=== PATIENT | male | born 1950 | race Caucasian/White ===

== ENCOUNTER → 2018-03-09 08:00 | Outpatient (CLI) | payer OTHER ==
[~2018-03-09 08:00] MED LIST: BAYER CHEWABLE81 MG PO; CHLORTHALIDONE50 MG PO; COLACE100 MG PO; CORDARONE200 MG PO; COZAAR100 MG PO; GLIPIZIDE10 MG PO; HYDRALAZINE HCL10 MG PO; ISOSORBIDE MONO30 M1 PO; K-TAB10 MEQ PO; LANTUS INSULIN10 ML SC; LIPITOR20 MG PO; METOPROLOL TART25 MG PO; OMEPRAZOLE20 M1 PO; PAXIL40 MG PO; PERCOCET 5-3251 TAB PO; PLAVIX75 MG PO; SENOKOT-S TABLE1 TAB PO; TIAZAC/CARDIZE240 M1 PO; TRICOR145 MG PO; VITAMIN D2000 UNIT PO
[2018-03-16 09:45] VITALS: BMI 31.4
== END | disposition home or self-care (01) ==
LOC: D.OPS 08:00
DX: I25.10 Atherosclerotic heart disease of native coronary artery without angina pectoris (principal); Z01.810 Encounter for preprocedural cardiovascular examination; Z01.811 Encounter for preprocedural respiratory examination; Z01.812 Encounter for preprocedural laboratory examination; Z53.9 Procedure and treatment not carried out, unspecified reason

== ENCOUNTER 2018-03-13 12:06 | Outpatient (CLI) | payer OTHER ==
[2018-03-09 11:10] LABS: APPEARANCE CLEAR (CLEAR); BILIRUBIN NEGATIVE (NEGATIVE); COLOR YELLOW (YELLOW); GLUCOSE NEGATIVE (NEGATIVE); KETONE NEGATIVE (NEGATIVE); NITRITE NEGATIVE (NEGATIVE); PROTEIN NEGATIVE (NEGATIVE); SPECIFIC GRAVITY 1.005 (1.005-1.020); UROBILINOGEN NORMAL (NORMAL)
[2018-03-09 11:21] LABS: BASOPHILS 0.5 % (0-2); EOSINOPHILS 1.8 % (0-7); HEMATOCRIT 36.6 % (42.0-54.0); HEMOGLOBIN 12.1 g/dL (13.5-17.5); IMMATURE GRANULOCYTES 0.2 % (0-5); LYMPHOCYTES 31.5 % (15-50); MCH 26.8 pg (26.0-34.0); MCHC 33.1 g/dL (31.0-37.0); MEAN PLATELET VOLUME 10.1 fL (7.4-10.4); MONOCYTES 11.5 % (2-11); NEUTROPHILS 54.5 % (40-80); PLATELET COUNT 242 10x3/uL (130-400); RBC 4.52 10x6/uL (4.20-6.10); RDW 13.2 % (11.5-14.5); WBC 4.4 10x3/uL (4.8-10.8)
[2018-03-09 11:38] LABS: APTT 26.7 SECONDS (22.8-39.4); INR 1.01 (0.85-1.17); PROTIME 12.9 SECONDS (11.6-15.0)
[2018-03-09 11:57] LABS: ALBUMIN 3.7 g/dL (3.4-5.0); ANION GAP 8.1 mmol/L (8-16); BILIRUBIN - TOTAL 0.28 mg/dL (0.2-1.3); CALCIUM 8.6 mg/dL (8.5-10.1); CARBON DIOXIDE 32.1 mmol/L (21.0-32.0); CREATININE - SERUM 1.6 mg/dL (0.6-1.3); PHOSPHOROUS 3.8 mg/dL (2.5-4.9); POTASSIUM - SERUM 3.2 mmol/L (3.5-5.1); PROTEIN - SERUM 7.6 g/dL (6.4-8.2); T4 THYROXIN - FREE 1.12 ng/dL (0.76-1.46); THYROID STIMULATING HORMONE 0.47 uIU/mL (0.36-3.74); URIC ACID 4.2 mg/dL (2.6-7.2)
--- NOTE | ~2018-03-13 | HP ---
PATIENT: JUAN MIGUEL SHI MEDICAL RECORD: [id number] ACCOUNT: [id number] LOCATION:[facility] : 52 ADMISSION DATE: 03/07/18 HISTORY AND PHYSICAL EXAMINATION JUAN MIGUEL Osborne (67yo, M) ID# [id number]. Date/Time02/21/2018 03:84NCIHU1951Service Dept.NP_[facility] ClinicProviderNARCISO WEINBERG MDInsuranceMed Contracts: [facility] Insurance # : [id number] Employer Name : SELF / RETIRED Prescription: ESI1 - Member is eligible. Chief Complaint Coronary artery disease Vitals BP:144/74 sitting L arm 02/21/2018 03:25 pm 144/60 sitting R arm 02/21/2018 03:27 pmBP Cuff Size:adult 02/21/2018 03:25 pm adult 02/21/2018 03:27 pmHR:60,reg 02/21/2018 03:28 pmHt:5 ft 9 in 02/21/2018 03:28 pmWt:215 lbs 02/21/2018 03:28 pmNotes:having chest pain and pressure for two months, noted especially with trying to mow. Pressure is fairly constant, becomes pain with exertion like mowing. Has SOB with walking up hill, even with walking around the [place] [employer] [place]. Has noted a high fatigue level for several months. 02/21/2018 03:30 pmBMI:31.7 02/21/2018 03:28 pmAllergies Reviewed Allergies SULFAMETHOXAZOLETRIMETHOPRIMMedications Reviewed Medications amoxicillin 500 mg iaenbgs45/26/17 filledMEDCOaspirin 81mg daily02/20/18 enteredErika Watkinsclopidogrel 75 mg tablet Take 1 tablet(s) every day by oral route.02/20/18 enteredErika Watkinsfenofibrate 150 mg capsule Take 1 capsule(s) every day by oral route.02/20/18 enteredErika WatkinshydrALAZINE 10 mg tablet Take 1 tablet(s) twice a day by oral route.02/20/18 enteredErika Watkinsmetoprolol tartrate 25mg bid02/20/18 enteredErika Watkinsomeprazole 20mg daily02/20/18 enteredErika WatkinsProblems Reviewed Problems Diabetes mellitus Dyslipidemia Hypertensive disorder Cerebrovascular disease Chronic lung disease Family History Reviewed Family History Father- Cerebrovascular accident (onset age: 64)Mother- Complication of surgical procedure (onset age: 72)Sister- Parkinson's diseaseSocial History Reviewed Social History Cardiology Family history of heart disease?: N Smoking Status: Former smoker (Notes: quit 1973) High Cholesterol: Y High blood pressure: Y Exercise level: None Overweight: Y Obese: Y HISTORY AND PHYSICAL [id number] JUAN MIGUEL SHI Diabetes: Y Alcohol intake: None Diet: Diabetic Occupation: [employer] Surgical History Reviewed Surgical History kidney stones Past Medical History Reviewed Past Medical History Angina: Y Bladder Problems: Y - kidney stones COPD: Y Chest Pain: Y Coronary Artery Disease: Y Depression: Y Diabetes: Y Eye Problems: Y Heart Disease: Y Hyperlipidemia: Y Hypertension: Y Pain in legs when walking: Y Prostate Problems: Y Shortness of Breath: Y Stroke: Y - 2012 or 2014, r side affected Documents for Discussion N/A Screening None recorded. HPI Angina/Chest Pain Reported by patient. Location: chest; does not radiate Quality: pressure; sharp Severity: very limiting Duration: lasts minutes; has noted for months Onset/Timing: multiple times per day Context: exertional Alleviating Factors: relieved with NTG; relieved with rest Aggravating Factors: worse with activity; worse with eating Associated Symptoms: no nocturnal episodes; chest discomfort; shortness of breath; exertional dyspnea; decrease in exercise capacity; fatigue; lightheadedness substernal chest pressure started about 2 months ago when mowing grass Workup at [place] including positive anterior stress test Negative carotids History of stroke with no residual angiogram with three-vessel coronary disease significant risk factors including diabetes hypertension hyperlipidemia family history, long ago former smoker ROS Additionally reports: as reviewed in the chart with the patient ROS as noted in the HPI Physical Exam Patient is a 67-year-old male. Constitutional: General Appearance well nourished and developed and HISTORY AND PHYSICAL [id number] JUAN MIGUEL SHI healthy-appearing. Level of Distress NAD. Ambulation ambulating normally. Cardiovascular: Apical Impulse not displaced or no thrill. Heart Auscultation no murmurs, rubs, or gallops and RRR. Arterial Pulses 2+ bilateral. Edema no edema or varicosities. Lungs: Repiratory Effort no dyspnea. Percussion no hyperresonance or dullness or flatness. Auscultation no wheezing, rhonchi, or rales / crackles and breathing sounds normal, good air movement, and CTA except as noted. Abdomen: Bowl Sounds normal. Inspection and Palpation no tenderness, guarding, masses, or rebound tenderness and soft and non-distended. Liver non-tender and no hepatomegaly. Spleen non-tender and no splenomegaly. Hernia none palpable. Ears, Nose, Throat: Hearing grossly normal hearing. Oropharynx: moist mucous membranes. Musculoskeletal System: Gait And Stance normal gait and stance. Digits and Nails normal nail s and no cyanosis. Joints, Bones, and Muscles normal strength and movement of all extremities. Neurologic: Cranial Nerves grossly intact. Sensation grossly intact. Lymph Nodes: Lymph Nodes no cervical LAD or supraclavicular LAD. Eyes: Lids and Conjunctivae no discharge or pallor and non-injected. Pupils PERRLA. Cornea grossly intact. EOM EOMI. Lens clear. Sclerae non-icteric. Neck: Neck no masses, enlarged lymph nodes, or carotid bruits and supple and trachea midline. Thyroid no enlargement or nodules and non-tender. Skin: Inspection and Palpation no rash, lesions, ulcers, or jaundice. Assessment / Plan 1. Coronary arteriosclerosis in [place] artery I25.10: Atherosclerotic heart disease of [place] coronary artery without angina pectoris Patient Goals discontinue Plavix 7 days prior to surgery Patient Instructions discussed warning signs for immediate emergency room visit Discussion Notes we discussed the rationale for surgery, alternatives, benefits, and risks with the patient and his . They understand the risks include but are not limited to bleeding, transfusion, infection, arrhythmia, stroke, heart attack, and . Consent given HISTORY AND PHYSICAL [id number] JUAN MIGUEL SHI, NARCISO Castanon MD at 1000 CC: [id number] DICTATION DATE: 02/21/18 1515 UPKEEP WORKER: [place] 02/23/18 1332 PRE IN [place] [id number] [place] [address]
[~2018-03-13 12:06] MED LIST changes: -COLACE100 MG PO; -CORDARONE200 MG PO; -PERCOCET 5-3251 TAB PO; -PLAVIX75 MG PO; -SENOKOT-S TABLE1 TAB PO
[2018-03-15 06:09] VITALS: BMI 31.0
== END 2018-03-13 12:07 | disposition home or self-care (01) ==
LOC: D.OPS 12:06 → D.SDCHOLD 03-15 05:00
PROVIDERS: Thoracic Surgery (Cardiothoracic Vascular Surgery)
DX: I25.10 Atherosclerotic heart disease of native coronary artery without angina pectoris (principal); Z01.810 Encounter for preprocedural cardiovascular examination; Z01.811 Encounter for preprocedural respiratory examination; Z01.812 Encounter for preprocedural laboratory examination; Z53.9 Procedure and treatment not carried out, unspecified reason

== ENCOUNTER 2018-03-15 05:00 | Inpatient (IN) | payer OTHER ==
[~2018-03-15] VITALS: Ht 175.3 cm; Wt 95.0 kg
[2018-03-15] VITALS (40 sets, daily range): BP systolic 107–149; BP diastolic 46–68; BMI 31.0
--- NOTE | ~2018-03-15 | OP ---
PATIENT NAME: JUAN MIGUEL SHI MEDICAL RECORD: [id number] :52 LOCATION:D.CVI D.CV04 ADMISSION DATE:03/15/18 SURGEON: ANTHONY WEINBERG MD DATE OF OPERATION: 03/15/2018 SURGEON: Anthony Weinberg MD ASSISTANTS: 1. Brayan Nair MD 2. OAMR Clarke OPERATIONS PERFORMED: 1. Pump-assist beating heart coronary artery bypass graft times 3 (left internal mammary artery to LAD, reverse saphenous vein graft from aorta to obtuse marginal, and aorta to distal posterior descending artery). 2. Endoscopic saphenous vein harvest. PREOPERATIVE DIAGNOSIS: Coronary artery disease with unstable angina. POSTOPERATIVE DIAGNOSIS: Coronary artery disease with unstable angina. ANESTHESIA: General endotracheal anesthesia. ESTIMATED BLOOD LOSS: Total cardiopulmonary bypass with CellSaver retransfusion. SPECIMENS: Internal mammary artery lymph node, frozen section benign. COMPLICATIONS: None. CONDITION: Stable. DISPOSITION: CV ICU. OPERATIVE FINDINGS: 1. Good quality greater saphenous vein, harvested endoscopically. 2. Good quality internal mammary artery. 3. Beating assist warm beating heart surgery done due to cold agglutinins. 4. LAD severely diseased 2.0-mm vessel. 5. Obtuse marginal 2.5 mm with proximal plaque. 6. Posterior descending artery severely diseased in the proximal and mid vessel. Distal vessel was 1.5 mm. Other small circumflex and posterolateral branches were small and not grafted. PROCEDURE INDICATION: Coronary disease with unstable angina. PROCEDURE NOTE: The patient was brought to the operating suite. General anesthesia was obtained. The patient was prepped and draped. Endoscopic vein harvest from right lower extremity was performed. Median sternotomy was performed. Left hemisternum was elevated and internal mammary artery and veins were taken down as pedicle grafts. Heparin was given. Pericardium was opened. The patient was cannulated and kept warm. Internal mammary was clipped distally and made ready for anastomosis. Sites for distal anastomoses were selected. Using the off pump retraction system, each vessel was stabilized while the apex of the heart was elevated. Inflow occluded and end-to-side anastomosis was OPERATIVE REPORT [id number] JUAN MIGUEL SHI performed. Then, the proximals were the heartstring device. Hemostasis was ensured. Protamine was given after decannulation and thorough irrigation. Drains were placed as were ventricular pacing wires. Left chest was evacuated and irrigated. Internal mammary harvest site was without bleeding. Pericardial fat was loosely reapproximated. Sternum was closed with wires. Fascia was closed. Subcutaneous tissue was closed. Skin was closed. Dermabond was placed. Needle and sponge counts were correct and the patient was taken to the ICU in stable condition. TRANSINT:[id number] Voice Confirmation ID: [id number] DOCUMENT ID: [id number] ANTHONY WEINBERG MD at 1015 CC: [id number] DICTATION DATE: 03/15/18 1646 HYDROCHLORIC MANUFACTURING SUPERVISOR: 03/15/18 1743 ADM IN [place] [id number] [place] [id number]
--- NOTE | ~2018-03-15 | TEE ---
PATIENT:JUAN MIGUEL SHI MEDICAL RECORD: [id number] LOCATION:[place] [address] AGE OF PATIENT: 67 ADMISSION DATE: 03/15/18 SEX: M REFERRING PHYSICIAN: INTERPRETING PHYSICIAN: MAGGIE PAUL MD TRANSESOPHAGEAL ECHOCARDIOGRAM Date: ROYCE CHARGE INDICATIONS: PREMEDICATIONS: PATIENT'S RESPONSE PROCEDURE DOPPLER MEASUREMENTS: LVIT LA PA RA LVOT RVOT Asc. Ao AV Gradient Peak AV Mean AV Area MV Gradient Peak MV Mean MV Area INTERPRETATION: Doppler: 2-D: COLOR FLOW DOPPLER NORMAL SALINE STUDY: MISCELLANOUS: DIAGNOSIS: PLAN: Merchandise Associate: Mule Spinner: COMMENTS: DATE OF SERVICE: 03/15/2018 PROCEDURE: Transesophageal echo evaluation of valvular structures during bypass surgery. FINDINGS: 1. Left ventricular chamber size is within normal limits. Left ventricular systolic function is normal. Overall ejection fraction estimated at 60%. 2. Left atrium, right atrium, and right ventricle chamber sizes are within TRANSESOPHAGEAL ECHOCARDIOGRAM REPORT [id number] JUAN MIGUEL SHI normal limits. 3. Valvular structures have normal structure and motion. 4. Doppler interrogation reveals trace mitral regurgitation, trace tricuspid regurgitation, no other valvular insufficiency or stenosis. 5. No evidence of pericardial effusion or left ventricular thrombus. TRANSINT:[id number] Voice Confirmation ID: [id number] DOCUMENT ID: [id number] at 1713 CC: [id number] DICTATION DATE: 03/15/18 1232 GENERAL MACHINIST: 03/15/18 1236 ADM IN [place] [address] [place] [address]
[2018-03-15] MEDS ORDERED: PLAVIX75 MG PO (15:18)
[2018-03-16] VITALS (59 sets, daily range): BP systolic 107–156; BP diastolic 52–84; Ht 175.3 cm; Wt 95.0 kg
[2018-03-16 05:47] LABS: HEMATOCRIT 33.1 % (42.0-54.0); HEMOGLOBIN 11.1 g/dL (13.5-17.5); MCH 26.8 pg (26.0-34.0); MCHC 33.5 g/dL (31.0-37.0); MEAN PLATELET VOLUME 9.9 fL (7.4-10.4); RBC 4.14 10x6/uL (4.20-6.10); RDW 13.4 % (11.5-14.5); WBC 12.1 10x3/uL (4.8-10.8)
[2018-03-16 06:23] LABS: ALBUMIN 2.8 g/dL (3.4-5.0); ANION GAP 12.9 mmol/L (8-16); BILIRUBIN - TOTAL 0.37 mg/dL (0.2-1.3); CALCIUM 7.5 mg/dL (8.5-10.1); CARBON DIOXIDE 27.7 mmol/L (21.0-32.0); POTASSIUM - SERUM 3.6 mmol/L (3.5-5.1); PROTEIN - SERUM 5.5 g/dL (6.4-8.2)
[2018-03-17] VITALS (45 sets, daily range): BP systolic 93–151; BP diastolic 57–80
[2018-03-17 06:00] LABS: HEMATOCRIT 34.2 % (42.0-54.0); HEMOGLOBIN 11.1 g/dL (13.5-17.5); MCH 26.6 pg (26.0-34.0); MCHC 32.5 g/dL (31.0-37.0); MCV 81.8 fL (80.0-100.0); MEAN PLATELET VOLUME 10.3 fL (7.4-10.4); RBC 4.18 10x6/uL (4.20-6.10); RDW 13.8 % (11.5-14.5); WBC 12.7 10x3/uL (4.8-10.8)
[2018-03-17 06:31] LABS: ALBUMIN 2.7 g/dL (3.4-5.0); ANION GAP 8.9 mmol/L (8-16); BILIRUBIN - TOTAL 0.23 mg/dL (0.2-1.3); CALCIUM 8.1 mg/dL (8.5-10.1); CARBON DIOXIDE 32.8 mmol/L (21.0-32.0); CREATININE - SERUM 1.6 mg/dL (0.6-1.3); POTASSIUM - SERUM 3.7 mmol/L (3.5-5.1); PROTEIN - SERUM 6.3 g/dL (6.4-8.2)
[2018-03-18] VITALS (24 sets, daily range): BP systolic 106–144; BP diastolic 59–71
[2018-03-18 05:11] LABS: MCH 26.4 pg (26.0-34.0); MCHC 32.3 g/dL (31.0-37.0); MCV 81.8 fL (80.0-100.0); MEAN PLATELET VOLUME 10.1 fL (7.4-10.4); RBC 3.79 10x6/uL (4.20-6.10); RDW 13.9 % (11.5-14.5)
[2018-03-18 05:36] LABS: ALBUMIN 2.4 g/dL (3.4-5.0); ANION GAP 7.2 mmol/L (8-16); BILIRUBIN - TOTAL 0.37 mg/dL (0.2-1.3); CALCIUM 8.4 mg/dL (8.5-10.1); CARBON DIOXIDE 33.6 mmol/L (21.0-32.0); CREATININE - SERUM 1.7 mg/dL (0.6-1.3); POTASSIUM - SERUM 3.8 mmol/L (3.5-5.1)
[2018-03-19] VITALS (24 sets, daily range): BP systolic 107–156; BP diastolic 57–636
[2018-03-19 06:28] LABS: HEMATOCRIT 32.4 % (42.0-54.0); HEMOGLOBIN 10.7 g/dL (13.5-17.5); MCH 27.2 pg (26.0-34.0); MCV 82.2 fL (80.0-100.0); MEAN PLATELET VOLUME 10.5 fL (7.4-10.4); RBC 3.94 10x6/uL (4.20-6.10); RDW 13.7 % (11.5-14.5)
[2018-03-19 06:29] LABS: WBC 7.1 10x3/uL (4.8-10.8)
[2018-03-19 06:47] LABS: ALBUMIN 2.3 g/dL (3.4-5.0); ANION GAP 12.9 mmol/L (8-16); BILIRUBIN - TOTAL 0.62 mg/dL (0.2-1.3); CALCIUM 8.6 mg/dL (8.5-10.1); CARBON DIOXIDE 30.5 mmol/L (21.0-32.0); CREATININE - SERUM 1.3 mg/dL (0.6-1.3); POTASSIUM - SERUM 3.4 mmol/L (3.5-5.1); PROTEIN - SERUM 6.1 g/dL (6.4-8.2)
[2018-03-20] VITALS (20 sets, daily range): BP systolic 118–155; BP diastolic 65–93
[2018-03-20 05:57] LABS: HEMOGLOBIN 9.9 g/dL (13.5-17.5); MCH 26.8 pg (26.0-34.0); MCV 81.1 fL (80.0-100.0); RBC 3.7 10x6/uL (4.20-6.10); RDW 13.9 % (11.5-14.5); WBC 6.8 10x3/uL (4.8-10.8)
[2018-03-20 06:24] LABS: ALBUMIN 2.4 g/dL (3.4-5.0); ANION GAP 9.9 mmol/L (8-16); BILIRUBIN - TOTAL 0.47 mg/dL (0.2-1.3); CALCIUM 8.7 mg/dL (8.5-10.1); CARBON DIOXIDE 32.5 mmol/L (21.0-32.0); CREATININE - SERUM 1.4 mg/dL (0.6-1.3); POTASSIUM - SERUM 3.4 mmol/L (3.5-5.1); PROTEIN - SERUM 6.3 g/dL (6.4-8.2)
[2018-03-21] VITALS (12 sets, daily range): BP systolic 133–167; BP diastolic 49–81
[2018-03-21] MEDS ORDERED: CORDARONE200 MG PO (08:03)
[2018-03-21] MEDS ORDERED: COLACE100 MG PO (08:04)
[2018-03-21] MEDS ORDERED: SENOKOT-S TABLE1 TAB PO (08:04)
[2018-03-21] MEDS ORDERED: PERCOCET 5-3251 TAB PO (08:07)
== END 2018-03-21 13:54 | disposition home or self-care (01) | DRG 236 ==
LOC: D.SDCHOLD 05:00 → D.CVICU 05:00 → D.SDCHOLD 07:30 → D.CVICU 14:08
PROVIDERS: Thoracic Surgery (Cardiothoracic Vascular Surgery)
PROC: 021109W Bypass Coronary Artery, Two Arteries from Aorta with Autologous Venous Tissue, Open Approach (ICD-10-PCS; 2018-03-15)
PROC: 06BP4ZZ Excision of Right Saphenous Vein, Percutaneous Endoscopic Approach (ICD-10-PCS; 2018-03-15)
PROC: B24BZZ4 Ultrasonography of Heart with Aorta, Transesophageal (ICD-10-PCS; 2018-03-15)
PROC: 02100Z9 Bypass Coronary Artery, One Artery from Left Internal Mammary, Open Approach (ICD-10-PCS; principal; 2018-03-15 07:30)
DX: I25.110 Atherosclerotic heart disease of native coronary artery with unstable angina pectoris (principal); J98.11 Atelectasis; E11.9 Type 2 diabetes mellitus without complications; I10 Essential (primary) hypertension; E78.5 Hyperlipidemia, unspecified; E87.6 Hypokalemia; I48.0 Paroxysmal atrial fibrillation

== ENCOUNTER → 2018-04-18 08:32 | Outpatient (CLI) | payer OTHER ==
[2018-03-16 09:45] VITALS: BMI 31.4
[~2018-04-18 08:32] MED LIST changes: +COLACE100 MG PO; +CORDARONE200 MG PO; +PERCOCET 5-3251 TAB PO; +PLAVIX75 MG PO; +SENOKOT-S TABLE1 TAB PO
[2018-04-18 09:02] LABS: HEMATOCRIT 34.3 % (42.0-54.0); HEMOGLOBIN 10.9 g/dL (13.5-17.5); MCH 25.3 pg (26.0-34.0); MCHC 31.8 g/dL (31.0-37.0); MCV 79.8 fL (80.0-100.0); MEAN PLATELET VOLUME 9.6 fL (7.4-10.4); RBC 4.3 10x6/uL (4.20-6.10); RDW 13.2 % (11.5-14.5); WBC 7.7 10x3/uL (4.8-10.8)
[2018-04-18 09:16] LABS: ALBUMIN 3.6 g/dL (3.4-5.0); ANION GAP 9.6 mmol/L (8-16); BILIRUBIN - TOTAL 0.3 mg/dL (0.2-1.3); CALCIUM 8.7 mg/dL (8.5-10.1); CARBON DIOXIDE 32.7 mmol/L (21.0-32.0); CREATININE - SERUM 1.8 mg/dL (0.6-1.3); POTASSIUM - SERUM 4.3 mmol/L (3.5-5.1); PROTEIN - SERUM 7.5 g/dL (6.4-8.2)
== END | disposition home or self-care (01) ==
LOC: D.LAB 08:32
PROVIDERS: Thoracic Surgery (Cardiothoracic Vascular Surgery)
DX: I25.10 Atherosclerotic heart disease of native coronary artery without angina pectoris (principal); D64.9 Anemia, unspecified; J90 Pleural effusion, not elsewhere classified

== ENCOUNTER → 2021-01-29 10:03 | Outpatient (CLI) | payer OTHER ==
[2018-03-16 09:45] VITALS: BMI 31.4
== END | disposition home or self-care (01) ==
LOC: D.ECHO 10:03
PROVIDERS: ATTEND Nurse Practitioner Family
DX: I47.2 Ventricular tachycardia (principal)